=== PATIENT | male | born 1990 | race Hispanic/Latino ===

== ENCOUNTER 2021-05-08 18:43 | Emergency (ER) | payer OTHER, SELFPAY ==
[2021-05-08 19:15] VITALS: BP 131/86; PULSE 92; RESP 18; TEMP 36.6; O2SAT 98
--- NOTE | 2021-05-08 20:21 | ED.URI ---
HPI - URI/Sore Throat General Chief Complaint: Upper Respiratory Infection Stated Complaint: cough,nasal congestion Time Seen by Provider: 05/08/21 20:06 Source: patient and RN notes reviewed Mode of arrival: ambulatory Limitations: no limitations History of Present Illness HPI Narrative: Patient presents today with an 8-day history of cough, nasal congestion. Reports cough is worse throughout the day and is significantly worse at night. Denies shortness of breath. He had a negative PCR COVID-19 test several days ago. He had a telemedicine visit 2 days ago and was started on Augmentin and diagnosed with a URI. He is also been taking DayQuil and NyQuil. He has been vaccinated against COVID-19 and influenza. MD elicited complaint: cough and nasal congestion Related Data Home Medications Medication Instructions Recorded Confirmed montelukast 10 mg DAILY 05/08/21 05/08/21 sertraline 50 mg DAILY 05/08/21 05/08/21 Allergies Allergy/AdvReac Type Severity Reaction Status Date / Time No Known Allergies Allergy Verified 05/08/21 19:49 Review of Systems Review of Systems: CONSTITUTIONAL: Denies body aches, fever, chills, or sweats. EYES: Denies visual changes, redness, or discharge. ENT: Denies rhinorrhea, sore throat, or otalgia.+ Congestion CARDIOVASCULAR: Denies chest pain, palpitations, or edema. RESPIRATORY: Denies dyspnea.+ Cough GASTROINTESTINAL: Denies abdominal pain, nausea, vomiting, or diarrhea. GENITOURINARY: Denies dysuria or hematuria. SKIN: Denies rash, itching, or wounds. MUSCULOSKELETAL: Denies back pain, joint pain, or myalgia. NEUROLOGIC: Denies headache, numbness, tingling, or weakness. PSYCH: Denies depression or anxiety. PMFSH Comments At time of signature, I have reviewed and agree with nursing past medical, surgical, social and family history unless otherwise noted. Please see nursing chart for further information. There is no relevant family history pertinent to the presenting complaint Exam Narrative: GENERAL: Mildly ill-appearing, well-nourished, and in no acute distress. HEAD: Normocephalic, atraumatic. EYES: EOMI. No redness or drainage. Conjunctivae normal. ENT: Mucous membranes pink and moist. Nares congested. No rhinorrhea. TMs normal bilaterally. Throat normal. Uvula midline. NECK: Normal AROM. Supple. No lymphadenopathy. CHEST: No respiratory distress. Clear to auscultation. Harsh cough noted. HEART: Regular rate and rhythm. No murmur appreciated. Normal peripheral pulses. EXTREMITIES: Normal range of motion. No edema. SKIN: Warm, dry, no rash. Capillary refill normal. Normal skin turgor. NEURO: No focal deficits. Alert and oriented x3. Gait steady. PSYCH: Normal affect. No signs of depression or anxiety. Course Course Level of Care: Express Care Visit Vital Signs Vital signs: Vital Signs Temperature 97.8 F 05/08/21 19:15 Pulse Rate 92 05/08/21 19:15 Respiratory Rate 18 05/08/21 19:15 Blood Pressure 131/86 05/08/21 19:15 Pulse Oximetry 98 05/08/21 19:15 Temperature 97.8 F 05/08/21 19:15 Pulse Rate 92 05/08/21 19:15 Respiratory Rate 18 05/08/21 19:15 Blood Pressure 131/86 05/08/21 19:15 Pulse Oximetry 98 05/08/21 19:15 Reviewed. Pt has been instructed to follow up with his PCP regarding his elevated blood pressure today. MDM - URI/Sore Throat Differential Diagnosis Differential diagnosis: Likely upper respiratory infection, sinusitis, viral infection and bronchitis Critical Care Time Critical Care Time Critical Care Time: No Discharge Plan Discharge Clinical Impression: Bronchitis Sinusitis Qualifiers: Sinusitis location: unspecified location Chronicity: acute Recurrence: non-recurrent Qualified Code(s): J01.90 - Acute sinusitis, unspecified Patient Disposition: Home, Self-Care Condition: Stable Instructions: Sinusitis (ED), Acute Bronchitis (ED) Additional Instructions: Continue your prescribed Augmenti
== END 2021-05-08 20:31 | disposition home or self-care (01) ==
PROVIDERS: Emergency Provider Nurse Practitioner; PCP Family Medicine
DX: J40 Bronchitis, not specified as acute or chronic (principal); J01.90 Acute sinusitis, unspecified
CPT/HCPCS: 99203; G0463

== ENCOUNTER 2024-05-28 08:42 | Observation (INO) | payer BC, SELFPAY ==
[2024-05-28] VITALS (15 sets, daily range): BP systolic 109–140; BP diastolic 65–93; PULSE 89–107; RESP 12–22; TEMP 36.2–37.4; O2SAT 93–100; BMI 30.1
--- NOTE | ~2024-05-28 | CT_ITS ---
EXAMINATION: CT abdomen pelvis wo con DATE: 05/28/2024 09:21 INDICATION: Right lower quadrant abdominal pain TECHNIQUE: Computed tomography (CT) of the abdomen and pelvis was performed without intravenous contr ast. Automated exposure control and iterative reconstruction technique were employed. The dose-length product was 1175.79 mGy-cm. COMPARISON: None FINDINGS: 11 x 7 mm subpleural nodule in the right lower lobe. Heart size is normal. No pericardial or pleural effusion. Cholecystectomy clips the gallbladder fossa. Diffuse hepatic steatosis. Splenomegaly measur ing 15 cm in maximal length. Pancreas, bilateral adrenal glands and kidneys are normal. There is an a ppendicolith at the base of the appendix which is dilated to 1.5 cm in diameter more distally with wa ll thickening and surrounding inflammatory stranding consistent with acute appendicitis. No abscess o r free intraperitoneal gas or fluid. Remainder of the bowels are normal. Bladder is and prostate are normal. No pathologically enlarged abdominal or pelvic lymphadenopathy. Mild thoracolumbar dextrocurv ature with mild spondylosis. Chronic appearing mild anterior wedging at T11 and L2. L1 hemangioma. IMPRESSION: 1. Acute appendicitis. Dr. Goins discussed these findings with Dr. Fuller at 9:25 AM. 2. Indeterminate 11 x 7 mm right lower lobe pulmonary nodule. In a patient of this age group, these m ost likely represent granulomatous disease. According to James society recommendations, Primary l nahomy cancer is rare in persons under 35 years of age and the risks of radiation exposure are greater t veloz in the older population. Therefore, unless there is a known primary cancer, multiple follow-up C T studies for small incidentally detected nodules should be avoided in young patients. In such cases , a single low dose follow up CT scan in 6 to 12 months should be considered. 2. Nonspecific splenomegaly which could be related to body habitus. Reviewed, dictated and finalized at location A. [facility] IMPRESSION: 1. Acute appendicitis. Dr. Goins discussed these findings with Dr. Fuller at 9:25 AM. 2. Indeterminate 11 x 7 mm right lower lobe pulmonary nodule. In a patient of t his age group, these most likely represent granulomatous disease. According to James society recommendations, Primary lung cancer is rare in persons under 35 years of age and the risks of radiation exposure are greater than in the ol andres population. Therefore, unless there is a known primary cancer, multiple fo llow-up CT studies for small incidentally detected nodules should be avoided in young patients. In such cases, a single low dose follow up CT scan in 6 to 12 months should be considered. 2. Nonspecific splenomegaly which could be related to body habitus.
[2024-05-28 09:03] LABS: Basophils Percent Auto 0.2 % (0.2-1.2); Eosinophils Percent Auto 0.1 % (0-4.4); Hematocrit 50.9 % (42.0-52.0); Hemoglobin 17.1 g/dL (14.0-18.0); Immature Granulocyte Absolute 0.08 K/mm3 (0.00-0.031); Immature Granulocyte Percent A 0.5 % (0-0.5); Lymphocytes Absolute Auto 2.33 K/mm3 (0.9-3.2); Lymphocytes Percent Auto 14.2 % (18.3-44.2); Mean Corpuscular HGB Conc 33.6 g/dl (32-36); Mean Corpuscular Hemoglobin 29.3 pg (26-34); Mean Corpuscular Volume 87.3 fl (80-100); Monocytes Absolute Auto 1.2 K/mm3 (0.1-0.6); Neutrophils Absolute Auto 12.8 K/mm3 (1.3-6.7); Platelet Count Result 240 k/mm3 (150-375); Red Blood Count 5.83 M/mm3 (4.6-6.20); Red Cell Distribution Width 13.6 % (11.5-14.5); White Blood Count 16.4 K/mm3 (4.5-10.0)
[2024-05-28 09:08] LABS: Add Urine Microscopic? YES; Appearance Urine Clear (Clear); Bacteria Urine None Seen /hpf; Bilirubin Urine Negative (Negative); Blood Urine Negative (Negative); Color Urine Yellow (Yellow); Glucose Urine UA Negative (Negative); Ketones Urine Trace mg/dL (Negative); Leukocyte Esterase Ur Negative LEU/UL (Negative); Nitrate Urine Negative (Negative); Protein Urine Trace mg/dL (Negative); Squamous Epithelial Cell Urine None Seen /hpf (Few); Urobilinogen Urine 0.2 mg/dL (<2.0); WBC Urine 0-5 /hpf (0-3)
[2024-05-28 09:14] LABS: Alanine Aminotransferase 37 U/L (6-50); Alkaline Phosphatase 66 U/L (38-126); Anion Gap 14 mmol/L (4-12); Aspartate Amino Transferase 26 U/L (17-59); Bilirubin,Total 1.3 mg/dL (0.2-1.3); Blood Urea Nitrogen 9 mg/dL (9-20); Calcium 9.5 mg/dL (8.4-10.2); Carbon Dioxide 26 mmol/L (22-30); Chloride 101 mmol/L (98-107); Estimated CRCL calculation 120 ml/min; Estimated Glomerular Filt Rate > 60; Glucose 122 mg/dL (65-110); Lipase 105 U/L (23-300); Potassium 4.3 mmol/L (3.4-5.0); Sodium 141 mmol/L (137-145)
--- NOTE | 2024-05-28 09:33 | ED_ITS ---
HPI - Abdominal Pain General Chief Complaint: Abdominal Pain Stated Complaint: LRQ pain Time Seen by Provider: 05/28/24 09:09 Source: patient Mode of arrival: ambulatory Limitations: no limitations History of Present Illness HPI narrative: 34 YEARS OLD WHITE MALE DROVE HIMSELF TO THE EMERGENCY ROOM COMPLAINING OF RIGHT LOWER QUADRANT PAIN STARTED YESTERDAY MORNING GETTING WORSE ASSOCIATED WITH NAUSEA. HE DENIES ANY FEVER OR CHILLS OR VOMITING OR DIARRHEA OR CONSTIPATION. PAIN IS A STEADY WORSE WITH CERTAIN MOVEMENT, HISTORY OF CHOLECYSTECTOMY AND DEPRESSION. Related Data Home Medications ?Medication ?Instructions ?Recorded ?Confirmed ?Last Taken ?Type montelukast 10 mg tablet 10 mg DAILY 05/08/21 05/08/21 Unknown History sertraline 50 mg tablet 50 mg DAILY 05/08/21 05/08/21 Unknown History naproxen 250 mg tablet 250 mg PO BID PRN 12/11/23 Unknown History Allergies Allergy/AdvReac Type Severity Reaction Status Date / Time No Known Allergies Allergy Verified 05/28/24 08:45 Review of Systems 2 Review of Systems: All systems reviewed & are unremarkable except as noted in HPI and below PMFSH Social History Social History Smoking status: Smoker, status unknown Exam 2 Narrative: GENERAL APPEARANCE: WELL-DEVELOPED, WELL-NOURISHED SKIN: NORMAL COLOR HEAD: NORMOCEPHALIC, NONTRAUMATIC EYES: CLEAR CONJUNCTIVA ENT: OROPHARYNX NORMAL, EARS NORMAL, NOSE NORMAL NECK: SUPPLE, NONTENDER CHEST AND RESPIRATORY: AIRWAY PATENT, NO RESPIRATORY DISTRESS, NO ACCESSORY MUSCLE USE HEART: REGULAR RATE/RHYTHM ABDOMEN: SOFT, MODERATE TENDERNESS RIGHT LOWER QUADRANT, POSITIVE GUARDING, NO REBOUND NO ORGANOMEGALY, QUIET BOWEL SOUNDS MUSCULOSKELETAL: NORMAL RANGE OF MOTION, NONTENDER BACK NEUROLOGIC: ALERT AND ORIENTED ?3, DIRECTOR OF PLANT OPERATIONS IS NORMAL TESTED, NO GROSS MOTOR DEFICIT Course Consultations Consultation #1: DR SMITH Date: 05/28/24 Time: 09:37 Vital Signs Vital signs: Vital Signs Temperature 37.4 C 05/28/24 08:50 Pulse Rate 92 05/28/24 08:50 Respiratory Rate 18 05/28/24 08:50 Blood Pressure 132/90 05/28/24 08:50 Pulse Oximetry 100 05/28/24 08:50 Oxygen Delivery Room Air 05/28/24 08:50 Temperature 37.4 C 05/28/24 08:50 Pulse Rate 92 05/28/24 08:50 Respiratory Rate 18 05/28/24 08:50 Blood Pressure 132/90 05/28/24 08:50 Pulse Oximetry 100 05/28/24 08:50 Oxygen Delivery Room Air 05/28/24 08:50 MDM - Abdominal Pain MDM Narrative Medical decision making narrative: PATIENT PRESENTS WITH RIGHT LOWER QUADRANT PAIN VITAL SIGNS ARE STABLE PHYSICAL EXAMINATION CONSISTENT WITH TENDERNESS AND GUARDING OF THE RIGHT LOWER QUADRANT DIFFERENTIAL DIAGNOSIS INCLUDE ACUTE APPENDICITIS, URINARY TRACT INFECTION, KIDNEY STONE, CONSTIPATION, COLITIS, DIVERTICULITIS BLOOD WORKUP TODAY INCLUDES CBC, CMP, LIPASE SHOWED WBC 16.4, OTHERWISE INSIGNIFICANT URINALYSIS SHOWED NO EVIDENCE OF INFECTION CT SCAN OF THE ABDOMEN AND PELVIS WITH IV CONTRAST SHOWED FINDING CONSISTENT WITH ACUTE APPENDICITIS ZOSYN STARTED ADMIT TO SURGERY Differential Diagnosis Differential diagnosis: Likely other ( ABOVE) Medical Records Attestation: I reviewed the patient's medical records. Lab Data Attestation: I reviewed the patient's lab results. 05/28/24 08:56 05/28/24 08:56 Labs: Lab Results 05/28/24 Range/Units 08:56 WBC 16.4 H (4.5-10.0) K/mm3 RBC 5.83 (4.6-6.20) M/mm3 Hgb 17.1 (14.0-18.0) g/dL Hct 50.9 (42.0-52.0) % MCV 87.3 (80-100) fl MCH 29.3 (26-34) pg MCHC 33.6 (32-36) g/dl RDW 13.6 (11.5-14.5) % Plt Count 240 (150-375) k/mm3 MPV 11.0 H (7.4-10.4) fl Immature Gran % (Auto) 0.5 (0-0.5) % Neut % (Auto) 78.0 H (45.5-73.1) % Lymph % (Auto) 14.2 L (18.3-44.2) % [place] % (Auto) 7.0 (2.6-8.5) % Eos % (Auto) 0.1 (0-4.4) % Baso % (Auto) 0.2 (0.2-1.2) % Lymph # (Auto) 2.33 (0.9-3.2) K/mm3 [place] # (Auto) 1.2 H (0.1-0.6) K/mm3 Eos # (Auto) 0.0 (0-0.3) K/mm3 Baso # (Auto) 0.0 (0.0-0.1) K/mm3 Abs Immat Gran (auto) 0.08 H (0.00-0.031) K/mm3 Absolute Neuts (auto) 12.8 H (1.3-6.7) K/mm3 Absolute Nucleated RBC 0.000 (0.0-0.012) K/mm3 Nucleated RBC % 0.0 (0.0-0.2) % Sodium 141 (137-145) mmol/L Potassium 4.3 (3.4-5.0) mmol/L Chloride 101 (98-107) mmol/L Carbon Dioxide 26 (22-30) mmol/L Anion Gap 14 H (4-12) mmol/L BUN 9 (9-20) mg/dL Creatinine 0.96 (0.7-1.3) mg/dL Estim Creat Clear Calc 120 ml/min Estimated GFR > 60 (59 - ) Glucose 122 H (65-110) mg/dL Calcium 9.5 (8.4-10.2) mg/dL Total Bilirubin 1.3 (0.2-1.3) mg/dL AST 26 (17-59) U/L ALT 37 (6-50) U/L Alkaline Phosphatase 66 (38-126) U/L Total Protein 8.0 (6.3-8.2) g/dL Albumin 5.0 (3.5-5.1) g/dL Lipase 105 (23-300) U/L Urine Color Yellow (Yellow) Urine Appearance Clear (Clear) Urine pH 6.0 (5.0-9.0) Ur Specific [place] 1.020 (1.001-1.035) Urine Protein Trace (Negative) mg/dL Urine Glucose (UA) Negative (Negative) mg/dL Urine Ketones Trace H (Negative) mg/dL Ur Blood (Man) Negative (Negative) Urine Nitrate Negative (Negative) Urine Bilirubin Negative (Negative) Urine Urobilinogen 0.2 (<2.0) mg/dL Leukocyte Esterase Rfl Negative (Negative) ZULEMA/UL Urine RBC 3-5 H (0-2) /hpf Urine WBC 0-5 (0-3) /hpf Ur Squamous Epith Cells None seen (Few) /hpf Urine Bacteria None seen /hpf Urine Casts 3-5 Imaging Data Radiologist's impression: ITS Impressions Abdomen/Pelvis CT 05/28/24 09:22 IMPRESSION: 1. Acute appendicitis. Dr. Goins discussed these findings with Dr. Fuller at 9:25 AM. 2. Indeterminate 11 x 7 mm right lower lobe pulmonary nodule. In a patient of this age group, these most likely represent granulomatous disease. According to James society recommendations, Primary lung cancer is rare in persons under 35 years of age and the risks of radiation exposure are greater than in the older population. Therefore, unless there is a known primary cancer, multiple follow-up CT studies for small incidentally detected nodules should be avoided in young patients. In such cases, a single low dose follow up CT scan in 6 to 12 months should be considered. 2. Nonspecific splenomegaly which could be related to body habitus. Critical Care Time Critical Care Time Critical Care Time: No Discharge Plan Discharge Clinical Impression: Acute appendicitis Patient Disposition: Still a Patient Condition: Stable Patient Language: Slovak Prescriptions: No Action montelukast 10 mg tablet 10 mg DAILY sertraline 50 mg tablet 50 mg DAILY albuterol sulfate [ProAir HFA] 90 mcg/actuation HFA aerosol inhaler 2 puff INHALATION Q4-6H PRN (Reason: shortness of breath or wheezing) Qty: 18 0RF naproxen 250 mg tablet 250 mg PO BID PRN Xifaxan 550 mg tablet 550 mg PO TID 14 Days Qty: 42 3RF dicyclomine 10 mg capsule 10 - 20 mg PO QID PRN (Reason: abdominal pain) Qty: 120 3RF Follow-up/Referrals: Sensintaffar,MD Rodri [Primary Care Provider] -
[2024-05-28] MEDS: HYDROmorphone HCL INJ (*CRX) 1 MG/ML SYR 0.5 MG IV PUSH ×2 (09:38→13:25)
[2024-05-28] MEDS: ONDANSETRON INJ 4 MG/2 ML VIAL IV PUSH ×2 (09:38→13:00)
[2024-05-28] MEDS: PIPERACILLN/TAZ 3.375GM/NS50ML 3.375 GM/50 ML BAG IVPB ×3 (09:38→21:57)
--- NOTE | 2024-05-28 12:30 | ADMGEN ---
This patient, Adrian Pabon, was admitted to [facility] Surg Room 312-01. Patient/family oriented to hospital policies and general routines including ID bracelet, bed and alarms, visiting hours, pain management, procedures, bathroom and other care routines, personal items, smoking policy, room service/diet, and visiting hours. Information on how to activate the Rapid Response Team has been discussed. Patient/Family are encouraged to report perceived risks to care and to ask questions if they do not understand what they are told or what they should do.
--- NOTE | 2024-05-28 12:58 | P.HP_ITS ---
H&P: HPI History of Present Illness Date/Time: 05/28/24 12:58 Chief Complaint: Right lower quadrant pain Narrative: This is a 34-year-old man who presented to the emergency department this morning with right lower quadrant pain that started yesterday around 7:00 a.m.. He has never had any symptoms like this in the past. He states that the pain started somewhat vague but then localized to the right lower quadrant and is also referred down into his right testicular region. He denies any fevers or chills. He has had nausea but no vomiting. He denies any change in bowel habits. Review of Systems Review of Systems: All systems reviewed & are unremarkable except as noted in HPI and below Constitutional: Constitutional: Denies chills and Denies fever(s) Eyes: Eyes: Denies change in vision ENT: Denies hearing loss, Denies neck pain and Denies sore throat Cardiovascular: Cardiovascular: Denies chest pain and Denies dyspnea Respiratory: Respiratory: Denies cough, Denies dyspnea and Denies wheezing Gastrointestinal: Gastrointestinal: Reports as per HPI Genitourinary: Genitourinary: Denies hematuria and Denies dysuria Musculoskeletal: Musculoskeletal: Denies arthralgias, Denies joint swelling and Denies neck pain Allergic/Immunologic: Allergic/Immunologic: Denies wheezing PMFSH Past Medical History Medical History (Updated 05/28/24 @ 13:03 by Artem Finnegan DO) Irritable bowel syndrome with diarrhea Surgical History Surgical History (Updated 05/28/24 @ 13:01 by Artem Finnegan DO) History of wisdom tooth extraction History of laparoscopic cholecystectomy Social History Social History Smoking status: Never smoker Alcohol intake: never Substance use: never Do You Feel Safe in your Home?: Yes Lack of Transportation: No Lack of Food: Never True Current Housing: I Have Housing Concerned About Future Housing: No Difficulty Paying Gas/Electric Bills: YES Difficulty Paying for Meds: YES Currently Unemployed: No Education: Decline to Answer Difficulty w/ Childcare or Family Care: YES Spiritual care concerns: No Meds Home Medications and Allergies Home Medications ?Medication ?Instructions ?Recorded ?Confirmed ?Type albuterol sulfate 90 mcg/actuation 2 puff inhalation Q4-6H PRN 05/08/21 Rx aerosol inhaler (ProAir HFA) shortness of breath or wheezing #18 grams montelukast 10 mg tablet 10 mg DAILY 05/08/21 05/08/21 History sertraline 50 mg tablet 50 mg DAILY 05/08/21 05/08/21 History dicyclomine 10 mg capsule 10 - 20 mg (1 - 2 x 10 mg) PO QID 12/11/23 12/11/23 Rx PRN abdominal pain #120 caps naproxen 250 mg tablet 250 mg PO BID PRN 12/11/23 History rifaximin 550 mg tablet (Xifaxan) 550 mg PO TID 14 days #42 tabs 12/11/23 12/11/23 Rx Allergies Allergy/AdvReac Type Severity Reaction Status Date / Time No Known Allergies Allergy Verified 05/28/24 08:45 Vital Signs Vital Signs - 24 hr 05/28/24 08:50 05/28/24 10:45 Temperature 99.4 F Pulse Rate 92 89 Respiratory Rate 18 18 Blood Pressure 132/90 109/65 Pulse Oximetry 100 95 Oxygen Delivery Room Air Exam Const: General: alert; No acute distress Orientation/consciousness: patient oriented x3 Limitations: no limitations HENMT: Head: normocephalic and atraumatic Ears: hearing grossly normal bilaterally Face/Nose/Sinus: Normal external nose present and Normal nares present Mouth: Yes Normal oral and palatal mucosa present and Yes moist mucous membranes Eyes: General: appearance normal, both eyes and all related structures Conjunctivae: conjunctivae normal Sclera: sclerae normal Pupils: Equal, round and reactive pupils present EOM: EOMs intact bilaterally Neck: Neck: normal visual inspection, full ROM, no lymphadenopathy, supple and no JVD Lymphatic: no lymphadenopathy noted Chest: Chest palpation & inspection: normal inspection of the chest Resp: Effort & Inspection: normal respiratory effort and able to speak in complete sentences Auscultation: clear to auscultation bilaterally Percussion: percussion normal Cardio: Jugular venous distension: no JVD Rate: regular rate Rhythm: regular rhythm Heart sounds: S1 normal heart sound present and S2 normal heart sound present Peripheral pulses: Peripheral pulses 2+ throughout GI: Inspection: normal to inspection GI Palp: Yes Soft to palpation, Yes Tenderness to palpation present (GI) (Right lower quadrant) and Yes Guarding due to palpation present (GI) (Right lower quadrant) Auscultation: normal bowel sounds : General: Yes no CVA tenderness Back/Spine/Pelvis: Back: no CVA tenderness Skin: General skin exam: normal color and dry skin Neuro: General: patient oriented x3, gait normal, moves all extremities, no focal motor deficits and CN's II-XI intact bilaterally Cranial nerves: Yes Equal, round and reactive pupils present Speech: normal speech Extrem: General: normal to inspection and capillary refill normal H&P: Results Labs Labs: Short CBC 05/28/24 Range/Units 08:56 WBC 16.4 H (4.5-10.0) K/mm3 Hgb 17.1 (14.0-18.0) g/dL Hct 50.9 (42.0-52.0) % Plt Count 240 (150-375) k/mm3 BMP 05/28/24 08:56 Sodium 141 Potassium 4.3 Chloride 101 Carbon Dioxide 26 BUN 9 Creatinine 0.96 Glucose 122 H Calcium 9.5 Liver Function 05/28/24 Range/Units 08:56 Total Bilirubin 1.3 (0.2-1.3) mg/dL AST 26 (17-59) U/L ALT 37 (6-50) U/L Alkaline Phosphatase 66 (38-126) U/L Albumin 5.0 (3.5-5.1) g/dL Urine 05/28/24 Range/Units 08:56 Urine Color Yellow (Yellow) Urine Appearance Clear (Clear) Urine pH 6.0 (5.0-9.0) Ur Specific [employer] 1.020 (1.001-1.035) Urine Protein Trace (Negative) mg/dL Urine Glucose (UA) Negative (Negative) mg/dL Imaging CT scan - abdomen: Radiologist's impression: ITS Impressions Abdomen/Pelvis CT 05/28/24 09:22 IMPRESSION: 1. Acute appendicitis. Dr. Goins discussed these findings with Dr. Fuller at 9:25 AM. 2. Indeterminate 11 x 7 mm right lower lobe pulmonary nodule. In a patient of this age group, these most likely represent granulomatous disease. According to James society recommendations, Primary lung cancer is rare in persons under 35 years of age and the risks of radiation exposure are greater than in the older population. Therefore, unless there is a known primary cancer, multiple follow-up CT studies for small incidentally detected nodules should be avoided in young patients. In such cases, a single low dose follow up CT scan in 6 to 12 months should be considered. 2. Nonspecific splenomegaly which could be related to body habitus. Assessment and Plan Assessment and plan (1) Acute appendicitis: Qualifiers: Acute appendicitis type: with localized peritonitis Appendicitis gangrene presence: unspecified whether gangrene present Appendicitis perforation presence: unspecified whether perforation present Appendicitis abscess presence: unspecified whether abscess present Qualified Code(s): K35.30 - Acute appendicitis with localized peritonitis, without perforation or gangrene Code(s): K35.80 - Unspecified acute appendicitis Status: Acute Assessment and Plan: * I have reviewed the CT and discussed the findings with the patient. Patient has evidence of acute appendicitis. Discussed both medical and surgical treatment options and patient feels comfortable proceeding with surgery. He has been started on IV Zosyn and admitted for observation. I have recommended undergoing urgent laparoscopic appendectomy, possible open. I discussed the procedure, risks, benefits, and alternatives. Questions were answered. I discussed that if perforation is found at the time of surgery he might require a longer hospitalization. Patient voiced his understanding.
[2024-05-28] MEDS: LACTATED RINGERS 1,000 ML 150 ML IV CONT (13:00)
--- NOTE | 2024-05-28 13:15 | WPDHPUPDATE1 ---
History and Physical Update Update Date/Time: 05/28/24 13:15 History and Physical has been reviewed, including an updated exam of the patient. There are NO changes in the patient's condition. Risks, benefits, and alternatives have been discussed and questions answered. Patient agrees to proceed with procedure.
--- NOTE | 2024-05-28 14:17 | P.PNAN_ITS ---
Anes - Initial Pre Proc Eval Procedure: Operation Date: 05/28/24 15:00 Proposed Procedures p Laparoscopic Appendectomy - Artem Finnegan DO Date/Time: 05/28/24 14:17 Surgeon: Artem Finnegan DO Pre Op Diagnosis: Acute Appendicitis Patient Data Age: 34 Gender: M Height: 1.93 m Weight: 112.2 kg Last Vital Signs Temp 36.7 C 05/28/24 13:45 Pulse 96 05/28/24 13:45 Resp 14 05/28/24 13:45 BP 119/68 05/28/24 13:45 Pulse Ox 100 05/28/24 13:45 O2 Del Method Room Air 05/28/24 13:45 Allergies Allergy/AdvReac Type Severity Reaction Status Date / Time No Known Allergies Allergy Verified 05/28/24 14:10 Home Medications ?Medication ?Instructions ?Recorded ?Confirmed ?Type albuterol sulfate 90 mcg/actuation 2 puff inhalation Q4-6H PRN 05/08/21 Rx aerosol inhaler (ProAir HFA) shortness of breath or wheezing #18 grams montelukast 10 mg tablet 10 mg DAILY 05/08/21 05/08/21 History sertraline 50 mg tablet 50 mg DAILY 05/08/21 05/08/21 History dicyclomine 10 mg capsule 10 - 20 mg (1 - 2 x 10 mg) PO QID 12/11/23 12/11/23 Rx PRN abdominal pain #120 caps naproxen 250 mg tablet 250 mg PO BID PRN 12/11/23 History rifaximin 550 mg tablet (Xifaxan) 550 mg PO TID 14 days #42 tabs 12/11/23 12/11/23 Rx Laboratory Tests 05/28/24 08:56 WBC 16.4 H K/mm3 (4.5-10.0) RBC 5.83 M/mm3 (4.6-6.20) Hgb 17.1 g/dL (14.0-18.0) Hct 50.9 % (42.0-52.0) MCV 87.3 fl (80-100) MCH 29.3 pg (26-34) MCHC 33.6 g/dl (32-36) RDW 13.6 % (11.5-14.5) Plt Count 240 k/mm3 (150-375) MPV 11.0 H fl (7.4-10.4) Immature Gran % (Auto) 0.5 % (0-0.5) Neut % (Auto) 78.0 H % (45.5-73.1) Lymph % (Auto) 14.2 L % (18.3-44.2) [place] % (Auto) 7.0 % (2.6-8.5) Eos % (Auto) 0.1 % (0-4.4) Baso % (Auto) 0.2 % (0.2-1.2) Lymph # (Auto) 2.33 K/mm3 (0.9-3.2) [place] # (Auto) 1.2 H K/mm3 (0.1-0.6) Eos # (Auto) 0.0 K/mm3 (0-0.3) Baso # (Auto) 0.0 K/mm3 (0.0-0.1) Abs Immat Gran (auto) 0.08 H K/mm3 (0.00-0.031) Absolute Neuts (auto) 12.8 H K/mm3 (1.3-6.7) Absolute Nucleated RBC 0.000 K/mm3 (0.0-0.012) Nucleated RBC % 0.0 % (0.0-0.2) Sodium 141 mmol/L (137-145) Potassium 4.3 mmol/L (3.4-5.0) Chloride 101 mmol/L (98-107) Carbon Dioxide 26 mmol/L (22-30) Anion Gap 14 H mmol/L (4-12) BUN 9 mg/dL (9-20) Creatinine 0.96 mg/dL (0.7-1.3) Estim Creat Clear Calc 120 ml/min Estimated GFR > 60 (59 - ) Glucose 122 H mg/dL (65-110) Calcium 9.5 mg/dL (8.4-10.2) Total Bilirubin 1.3 mg/dL (0.2-1.3) AST 26 U/L (17-59) ALT 37 U/L (6-50) Alkaline Phosphatase 66 U/L (38-126) Total Protein 8.0 g/dL (6.3-8.2) Albumin 5.0 g/dL (3.5-5.1) Lipase 105 U/L (23-300) Urine Color Yellow (Yellow) Urine Appearance Clear (Clear) Urine pH 6.0 (5.0-9.0) Ur Specific [place] 1.020 (1.001-1.035) Urine Protein Trace mg/dL (Negative) Urine Glucose (UA) Negative mg/dL (Negative) Urine Ketones Trace H mg/dL (Negative) Ur Blood (Man) Negative (Negative) Urine Nitrate Negative (Negative) Urine Bilirubin Negative (Negative) Urine Urobilinogen 0.2 mg/dL (<2.0) Leukocyte Esterase Rfl Negative ZULEMA/UL (Negative) Urine RBC 3-5 H /hpf (0-2) Urine WBC 0-5 /hpf (0-3) Ur Squamous Epith Cells None seen /hpf (Few) Urine Bacteria None seen /hpf Urine Casts 3-5 Patient hx anesthesia problems: none Family hx anesthesia problems: none Results Review: All pre-operative results and documents have been reviewed as part of the pre- operative evaluation. [facility] Past Medical History Medical History (Updated 05/28/24 @ 14:18 by Willard Patino DO) Asthma Irritable bowel syndrome with diarrhea Surgical History Surgical History (Updated 05/28/24 @ 13:01 by Artem Finnegan DO) History of wisdom tooth extraction History of laparoscopic cholecystectomy Social History Social History Smoking status: Never smoker Alcohol intake: never Substance use: never Do You Feel Safe in your Home?: Yes Lack of Transportation: No Lack of Food: Never True Current Housing: I Have Housing Concerned About Future Housing: No Difficulty Paying Gas/Electric Bills: YES Difficulty Paying for Meds: YES Currently Unemployed: No Education: Decline to Answer Difficulty w/ Childcare or Family Care: YES Spiritual care concerns: No Anes - Eval Final PreProcedure Day of Procedure 05/28/24 14:17 Patient weight: obese Heart: regular rate and rhythm Lungs: clear to auscultation Airway: Mallampati scale class II Neurological: alert and oriented Last oral intake: >/= 8 hours ASA classification: II Emergent: yes Anesthetic plan: proceed Anesthesia type and monitoring: general ETT and standard monitoring Results Review: All pre-operative results and documents have been reviewed as part of the pre- operative evaluation. Informed Consent: The patient's anesthetic plan and its attendant risks and benefits were discussed with the patient/family/POA. Questions were solicited and answers provided to the satisfaction of the patient/family/POA.
[2024-05-28] MEDS: BUPIVACAINE/EPINEPHRINE 0.5% 10 ML VIAL 30 ML INFILTRATE (14:38)
[2024-05-28] MEDS: LACTATED RINGERS 1,000 ML 30 ML IV CONT ×2 (15:28→16:01)
--- NOTE | 2024-05-28 15:31 | P.OP_ITS ---
Procedure Note - Detailed Date of Procedure 05/28/24 Pre-op Diagnosis Acute Appendicitis Post-op Diagnosis Same (Acute perforated appendicitis) Procedure Performed Laparoscopic appendectomy Surgeon Artem Finnegan, DO Anesthesia General and Local (0.5% bupivicaine with epinephrine) Indications This is a 34-year-old man who presented to the emergency department with right lower quadrant pain that started yesterday. He denied any fevers or chills. He was experiencing some nausea. He was noted to have a white blood count of 16.[address] showed evidence of acute appendicitis. He was started on IV Zosyn and placed in observation. Discussions were made with the patient about treatment options and decision was made to proceed with laparoscopic appendectomy, possible open. Findings Laparoscopic appendectomy was performed. The appendix was found in the right lower quadrant appeared to be indurated and dilated. There appeared to be a tiny site of perforation close to the base of the appendix but there was no evidence of abscess formation yet. The base of the appendix appeared healthy and viable. The appendix was removed and sent to the lab for pathology. The area was irrigated with sterile saline and no further abnormalities were noted. Description of Procedure Procedure as well as risks, benefits, and alternatives were explained to the patient. The patient agreed to proceed. Written consent was obtained and placed in chart prior to procedure. The patient was brought back to surgical suite. He was placed supine on operating table. Time-out was done to confirm the patient and procedure. The patient was then intubated by the Anesthesia Department. His abdomen was prepped and draped in sterile fashion using chlorhexidine prep. A 5 mm incision was made just to the left of the patient's umbilicus and a 5 mm Optiview trocar was advanced through the abdominal layers under direct visualization. Once inside the peritoneal cavity, carbon dioxide insufflation was used to create a pneumoperitoneum. The camera was inserted and the abdomen was inspected. No immediate abnormalities were identified. The patient was then placed in slight Trendelenburg position and rotated to the le ft. A 5 mm incision was made in the suprapubic region in midline and a 5 mm trocar was inserted under direct visualization. A 12 mm incision was made in the left lower quadrant and a 12 mm trocar was inserted under direct visualization. The right lower quadrant was carefully inspected. The cecum was identified and then this was traced back to the appendix. The appendix was identified and grasped at the mesoappendix and lifted anteriorly. Careful blunt dissection was carried out at the base of the appendix through the mesoappendix using a [place] grasper. An Endo-CHRISTIANA 45 mm blue load stapler was then advanced across the base of the appendix and clamped and fired. A white reload was then clamped across the mesoappendix and fired. This freed up our appendix completely. It was then placed in an EndoCatch bag and removed through the left lower quadrant port. The staple lines were then inspected. Hemostasis appeared adequate and the staple lines appeared secure. The area was then irrigated with sterile saline. The pelvis was then carefully inspected and irrigated with sterile saline as well and the remainder of the abdomen was carefully inspected. The patient was then flattened out in bed. One final inspection was made around the abdominal cavity and no other abnormalities were seen. The left lower quadrant port was removed and a Avery-Catherine cone was used to appr oximate the fascia with an 0 Vicryl simple interrupted suture. The remaining ports were then removed under direct visualization. The camera was removed and the pneumoperitoneum was released. 0.5% bupivacaine with epinephrine was infiltrated locally around each of the incisions. The skin of the incisions was then approximated using 4-0 Monocryl subcuticular suture and Exofin glue was applied on top. The patient was then awakened from anesthesia, extubated, and transferred to Recovery. Estimated Blood Loss 10 Urine Output 300 Pathology Yes (Appendix) Complications No immediate complications Condition Stable Disposition Floor [facility] Billing Surgery - Charge Forward: Surgery Billing
[2024-05-28] MEDS: fentaNYL CITRATE INJ (*CRX) 100 MCG/2 ML VIAL 25 MCG IV PUSH ×2 (16:05→16:16)
[2024-05-28] MEDS: MONTELUKAST SODIUM 10 MG TABLET PO (18:03)
[2024-05-28] MEDS: HYDROcodone/acetaminophen (*CRX) 10-325 MG TABLET 1 TAB PO (18:03)
[2024-05-28] MEDS: IBUPROFEN 600 MG TABLET PO (20:38)
[2024-05-29] MEDS: PIPERACILLN/TAZ 3.375GM/NS50ML 3.375 GM/50 ML BAG IVPB ×4 (03:36→21:09)
[2024-05-29] MEDS: IBUPROFEN 600 MG TABLET PO ×2 (03:38→14:29)
[2024-05-29 06:00] VITALS: BP 98/71; PULSE 65; RESP 14; TEMP 36; O2SAT 97
[2024-05-29 06:27] LABS: Hematocrit 43.3 % (42.0-52.0); Hemoglobin 14.3 g/dL (14.0-18.0); Mean Corpuscular Hemoglobin 28.9 pg (26-34); Mean Corpuscular Volume 87.7 fl (80-100); Mean Platelet Volume 10.7 fl (7.4-10.4); Platelet Count Result 175 k/mm3 (150-375); Red Blood Count 4.94 M/mm3 (4.6-6.20); Red Cell Distribution Width 13.5 % (11.5-14.5); White Blood Count 11.8 K/mm3 (4.5-10.0)
[2024-05-29 06:41] LABS: Anion Gap 8 mmol/L (4-12); Blood Urea Nitrogen 9 mg/dL (9-20); Calcium 8.7 mg/dL (8.4-10.2); Carbon Dioxide 30 mmol/L (22-30); Chloride 102 mmol/L (98-107); Estimated CRCL calculation 98 ml/min; Estimated Glomerular Filt Rate > 60; Glucose 113 mg/dL (65-110); Potassium 4.2 mmol/L (3.4-5.0); Sodium 140 mmol/L (137-145)
[2024-05-29] MEDS: SERTRALINE HCL 50 MG TABLET 100 MG PO (08:32)
[2024-05-29] MEDS: ENOXAPARIN 40 MG/0.4 ML SYRINGE SUB-Q (08:35)
[2024-05-29] MEDS: HYDROcodone/acetaminophen (*CRX) 5-325 MG TABLET 1 TAB PO (08:35)
[2024-05-29] MEDS: HYDROmorphone HCL INJ (*CRX) 1 MG/ML SYR IV PUSH (12:39)
[2024-05-29 13:58] VITALS: BP 107/67; PULSE 101; RESP 16; TEMP 37.5; O2SAT 98
--- NOTE | 2024-05-29 15:46 | P.PNGS_ITS ---
Progress Note: A&P Assessment and Plan (1) Acute appendicitis: Qualifiers: Acute appendicitis type: with localized peritonitis Appendicitis abscess presence: without abscess Appendicitis gangrene presence: unspecified whether gangrene present Appendicitis perforation presence: with perforation Qualified Code(s): K35.32 - Acute appendicitis with perforation, localized peritonitis, and gangrene, without abscess Code(s): K35.80 - Unspecified acute appendicitis Status: Acute Assessment and Plan: * Still having a fair amount of pain. Will schedule Toradol IV to get better pain control. * Continue Zosyn * Increase activity as tolerated * Possibly home in next 1-2 days. Subjective Subjective Date/Time Seen: 05/29/24 15:46 Interval history: Still having significant pain all across lower abdomen. Slightly worse at LLQ incision but radiating to the right as well. No nausea or vomiting. Passing flatus and having some liquid BMs. Difficult to get pain under control so far. Exam GI: Inspection: incision (intact with glue, slight bruising around umbilical incision) GI Palp: Yes Soft to palpation, Yes Tenderness to palpation present (GI) (LLQ and RLQ), No Guarding due to palpation present (GI) and No Rebound tenderness present Auscultation: normal bowel sounds Objective Data Vital Signs Vital Signs: Vital Signs - 24 hr 05/28/24 15:55 05/28/24 16:10 05/28/24 16:25 Temperature 98 F Pulse Rate 107 H 100 98 Respiratory Rate 20 16 17 Blood Pressure 138/69 122/80 138/75 Pulse Oximetry 97 93 94 Oxygen Delivery Simple Face Mask Room Air Nasal Cannula Oxygen Flow Rate 8 2 05/28/24 16:40 05/28/24 16:55 05/28/24 17:15 Temperature 97.5 F L Pulse Rate 96 95 98 Respiratory Rate 16 14 18 Blood Pressure 131/80 118/76 140/93 H Pulse Oximetry 93 96 99 Oxygen Delivery Nasal Cannula Nasal Cannula Oxygen Flow Rate 2 2 05/28/24 17:30 05/28/24 18:00 05/28/24 19:00 Temperature 97.5 F L 97.4 F L 97.7 F Pulse Rate 94 92 95 Respiratory Rate 18 18 20 Blood Pressure 126/82 124/84 110/93 H Pulse Oximetry 97 98 99 Oxygen Delivery Oxygen Flow Rate 05/28/24 19:51 05/29/24 06:00 05/29/24 08:35 Temperature 97.1 F L 96.8 F L Pulse Rate 91 65 Respiratory Rate 12 14 Blood Pressure 121/85 98/71 L Pulse Oximetry 99 97 Oxygen Delivery Room Air Oxygen Flow Rate 05/29/24 13:58 Temperature 99.5 F Pulse Rate 101 H Respiratory Rate 16 Blood Pressure 107/67 Pulse Oximetry 98 Oxygen Delivery Oxygen Flow Rate Intake/Output Intake/Output: Intake & Output 05/26/24 05/27/24 05/28/24 05/29/24 23:59 23:59 23:59 23:59 Intake Total 2150 1245 Output Total 300 Balance 1850 1245 Meds/Results Medications: Active Medications Generic Name Dose Route Start Last Admin Trade Name Freq PRN Reason Stop Dose Admin Hydrocodone Bitart/Acetaminophen 1 tab 05/28/24 17:02 05/29/24 08:35 Hydrocodone/Acetaminophen (*Crx) 5-325 Mg Tablet PO 1 tab Q4H PRN Administration Pain Rated 4-6 Hydrocodone Bitart/Acetaminophen 1 tab 05/28/24 17:02 05/28/24 18:03 Hydrocodone/Acetaminophen (*Crx) 10-325 Mg Tablet PO 1 tab Q4H PRN Administration Pain Rated 7-10 Albuterol 2 puff 05/28/24 17:02 Albuterol Sulfate (*Sp) Aerosol 1 Puff INHALATION Q4-6H PRN shortness of breath or wheezing Diphenhydramine HCl 25 mg 05/28/24 17:02 Diphenhydramine Hcl Inj 50 Mg/Ml Vial IV PUSH Q6H PRN Itching Enoxaparin Sodium 40 mg 05/29/24 09:00 05/29/24 08:35 Enoxaparin 40 Mg/0.4 Ml Syringe SUB-Q 40 mg DAILY NORMAN Administration Hydromorphone HCl 1 mg 05/28/24 17:02 05/29/24 12:39 Hydromorphone Hcl Inj (*Crx) 1 Mg/Ml Syr IV PUSH 1 mg Q2H PRN Administration Breakthrough Pain Rated 7-10 or NPO Hydromorphone HCl 0.5 mg 05/28/24 17:02 Hydromorphone Hcl Inj (*Crx) 1 Mg/Ml Syr IV PUSH Q2H PRN Breakthrough Pain Rated 4-6 or NPO Piperacillin/Tazobactam/Dextrose 3.375 gm in 50 mls @ 100 mls/hr 05/29/24 10:00 05/29/24 11:22 Zosyn 3.375 Gm/Ns 50 Ml IVPB Infused Q6H NORMAN Infusion Ketorolac Tromethamine 30 mg 05/29/24 19:00 Ketorolac 30 Mg/Ml Vial (*Bkc) IV PUSH 05/30/24 12:01 Q6HR NORMAN Montelukast Sodium 10 mg 05/28/24 18:00 05/28/24 18:03 Montelukast Sodium 10 Mg Tablet PO 10 mg QPM NORMAN Administration Naloxone HCl 0.1 mg 05/28/24 17:02 Naloxone Hcl 0.4 Mg/Ml Vial IV PUSH Q2M PRN Opiate Reversal Ondansetron HCl 4 mg 05/28/24 10:40 05/28/24 13:00 Ondansetron Inj 4 Mg/2 Ml Vial IV PUSH 4 mg Q4H PRN Administration Nausea Sertraline HCl 100 mg 05/29/24 09:00 05/29/24 08:32 Sertraline Hcl 50 Mg Tablet PO 100 mg DAILY NORMAN Administration Radiology Results: ITS Impressions Abdomen/Pelvis CT 05/28/24 09:22 IMPRESSION: 1. Acute appendicitis. Dr. Goins discussed these findings with Dr. Fuller at 9:25 AM. 2. Indeterminate 11 x 7 mm right lower lobe pulmonary nodule. In a patient of this age group, these most likely represent granulomatous disease. According to James society recommendations, Primary lung cancer is rare in persons under 35 years of age and the risks of radiation exposure are greater than in the older population. Therefore, unless there is a known primary cancer, multiple follow-up CT studies for small incidentally detected nodules should be avoided in young patients. In such cases, a single low dose follow up CT scan in 6 to 12 months should be considered. 2. Nonspecific splenomegaly which could be related to body habitus. Labs Labs: Laboratory Results - last 24 hr 05/29/24 06:16 WBC 11.8 H RBC 4.94 Hgb 14.3 Hct 43.3 MCV 87.7 MCH 28.9 MCHC 33.0 RDW 13.5 Plt Count 175 MPV 10.7 H Sodium 140 Potassium 4.2 Chloride 102 Carbon Dioxide 30 Anion Gap 8 BUN 9 Creatinine 1.18 Estim Creat Clear Calc 98 Estimated GFR > 60 Glucose 113 H Calcium 8.7
[2024-05-29] MEDS: MONTELUKAST SODIUM 10 MG TABLET PO (17:04)
[2024-05-29 20:00] VITALS: PULSE 101; RESP 16; O2SAT 98
[2024-05-29] MEDS: KETOROLAC 30 MG/ML VIAL (*BKC) IV PUSH (20:04)
[2024-05-29 21:20] VITALS: BP 103/69; PULSE 89; RESP 18; TEMP 36.9; O2SAT 97
[2024-05-30] MEDS: KETOROLAC 30 MG/ML VIAL (*BKC) IV PUSH ×2 (00:45→06:20)
[2024-05-30] MEDS: PIPERACILLN/TAZ 3.375GM/NS50ML 3.375 GM/50 ML BAG IVPB ×2 (04:55→09:33)
[2024-05-30 05:52] VITALS: BP 124/77; PULSE 71; RESP 14; TEMP 36.5; O2SAT 98
[2024-05-30 06:55] LABS: Hematocrit 39.9 % (42.0-52.0); Hemoglobin 12.9 g/dL (14.0-18.0); Mean Corpuscular HGB Conc 32.3 g/dl (32-36); Mean Corpuscular Hemoglobin 28.8 pg (26-34); Mean Corpuscular Volume 89.1 fl (80-100); Mean Platelet Volume 11.4 fl (7.4-10.4); Platelet Count Result 166 k/mm3 (150-375); Red Blood Count 4.48 M/mm3 (4.6-6.20); Red Cell Distribution Width 13.7 % (11.5-14.5); White Blood Count 9.4 K/mm3 (4.5-10.0)
[2024-05-30 07:06] LABS: Anion Gap 8 mmol/L (4-12); Blood Urea Nitrogen 10 mg/dL (9-20); Calcium 8.4 mg/dL (8.4-10.2); Carbon Dioxide 28 mmol/L (22-30); Chloride 104 mmol/L (98-107); Estimated CRCL calculation 116 ml/min; Estimated Glomerular Filt Rate > 60; Glucose 93 mg/dL (65-110); Potassium 3.8 mmol/L (3.4-5.0); Sodium 140 mmol/L (137-145)
[2024-05-30] MEDS: ENOXAPARIN 40 MG/0.4 ML SYRINGE SUB-Q (09:32)
[2024-05-30] MEDS: SERTRALINE HCL 50 MG TABLET 100 MG PO (09:33)
[2024-05-30] MEDS: oxyCODONE/ACETAMINOPHEN (*CRX) 5-325 MG TABLET 1 TABLET PO (09:39)
--- NOTE | 2024-05-30 13:58 | P.DS_ITS ---
DS: Admitting Diagnosis Discharge Date 05/30/2024 Admitting Diagnosis * Acute appendicitis * Right lower lobe pulmonary nodule DS: Discharge Diagnosis Discharge Diagnosis (1) Perforated appendicitis: Code(s): K35.32 - Acute appendicitis with perforation, localized peritonitis, and gangrene, without abscess Status: Acute (2) Solitary pulmonary nodule present on computed tomography of lung: Code(s): R91.1 - Solitary pulmonary nodule Status: Acute DS: Summary Hospital Course Hospital Course: Patient began having right lower quadrant abdominal pain on 05/27/2024. This persisted and he came to the emergency room early on 05/28/2024. Evaluation there showed leukocytosis and right lower quadrant tenderness. CT scan showed acute appendicitis. Patient was taken to surgery by Dr. Smith and laparoscopic appendectomy was performed. He was noted to have a small perforation with only localized peritonitis. No abscess was seen. Following his surgery, he had more abdominal pain yesterday than 1 would typically expect. Labs and exam were checked. He was observed in the hospital on 05/29/2024. Sometime yesterday morning, his pain improved significantly. He has taken very little for pain medication since then. He has been eating and tolerating oral intake. He is independently ambulatory. He is discharged now in good condition. Status at Discharge Functional status at discharge: independent ambulation Overall status at discharge: patient is progressing back to baseline Time Spent with Patient Time attestation: Total time spent providing and/or coordinating discharge services: Time spent: Less than 30 minutes Exam Const: General: cooperative, comfortable, alert and awake GI: Inspection: incision (All are healing well) GI Palp: Yes Soft to palpation and Yes Tenderness to palpation present (GI) (Minimal incisional tenderness) Auscultation: normal bowel sounds DS: Data Data Completed and Pending Pending studies at discharge: Pending at discharge 05/28/24 15:05 Surgical [PTH] Routine Labs on day of discharge: Labs from last 24 hours 05/30/24 06:02 WBC 9.4 RBC 4.48 L Hgb 12.9 L Hct 39.9 L MCV 89.1 MCH 28.8 MCHC 32.3 RDW 13.7 Plt Count 166 MPV 11.4 H Sodium 140 Potassium 3.8 Chloride 104 Carbon Dioxide 28 Anion Gap 8 BUN 10 Creatinine 0.99 Estim Creat Clear Calc 116 Estimated GFR > 60 Glucose 93 Calcium 8.4 Discharge Plan Discharge Attending physician on discharge: Artem Smith Discharging Clinician: Deny Oconnor Anticipated Discharge Date/Time: 05/30/24 14:05 Patient Disposition: Home, Self-Care Activity: may shower, no straining, as tolerated and other - see discharge instructions Diet: regular Wound Care Instructions: incision open to air and other - see discharge instructions Discharge Instructions: DISCHARGE INSTRUCTION SHEET FOR HERNIA, GALLBLADDER AND APPENDIX SURGERIES DR. SMITH PATIENT TO TAKE HOME 1. May shower, no soaking in bath x 2weeks. 2. Call office for: * Wound increasingly painful or bleeding * Vomiting * Fever of greater than 101 degrees 3. If no bowel movement for three days, take 1 oz. (30 ml) Milk of Magnesia or MiraLax 17g 1 to 2 times daily. 4. No heavy lifting > 10-15 pounds x weeks for hernia repairs and 2 weeks for laparoscopic cholecystectomy or appendectomy. 5. No driving for 3 days or while taking narcotic pain medications. 6. Ice to surgical site for 48 hours (30 min on, then 30 min off). 7. Up walking 10-30 minutes three times per day. 8. Resume previous home medications. 9. Follow-up 10-14 days in office for wound check or as previously scheduled. ([id number]) 10. Oral pain medications prescription to be sent to pharmacy. Take Tylenol 500mg every 6 hours and Ibuprofen 600mg every 6 hours for the first 2 days, then as needed. 11. NUTRITION: Start out by drinking fluids and increase your diet as tolerated. If you experience nausea, try dry toast, crackers, and 7-UP. If nausea or vomiting persists, contact your surgeon?s office. 12. Gallbladders-Low Fat Diet for 2 weeks (send care note of low fat diet) 13. Inguinal Hernias-wear scrotal support for 48 hours 14. Abdominal Hernias-if sent home with abdominal binder, wear for the first 2 weeks (may remove to shower or at night to sleep). Revised September 2018 Patient Instructions: Antibiotic Form Patient Language: [place] Sudanese Stand Alone Forms: General Discharge Information Follow-up/Referrals: Artem Smith, [Physician] - 2 Weeks Discharge Medications: New oxycodone-acetaminophen [Endocet] 5-325 mg tablet 1 tablet PO Q4H PRN (Reason: pain) Qty: 10 0RF amoxicillin-pot clavulanate 875-125 mg tablet 1 tablet PO Q12H 7 Days Qty: 14 0RF metronidazole 500 mg tablet 500 mg PO Q8H 7 Days Qty: 21 0RF Continued montelukast 10 mg tablet 10 mg PO QPM sertraline 50 mg tablet 100 mg PO DAILY albuterol sulfate [ProAir HFA] 90 mcg/actuation HFA aerosol inhaler 2 puff INHALATION Q4-6H PRN (Reason: shortness of breath or wheezing) Qty: 18 0RF naproxen 250 mg tablet 250 mg PO BID PRN (Reason: pain) Date of admission: 05/28/24 10:42 Primary Care Provider: Macy,Rodri Admitting Provider: Artem Smith Attending physician on admission: Artem Smith Condition: Improved
[2024-05-30 14:00] VITALS: BP 126/83; PULSE 69; RESP 18; TEMP 36.4; O2SAT 99
== END 2024-05-30 15:50 | disposition home or self-care (01) ==
LOC: ANHED 09:43 → ANH3MEDSUR 11:21
PROVIDERS: Admitting Provider Surgery; Emergency Provider Emergency Medicine; PCP Family Medicine; Visit Provider Surgery
PROC: 0DTJ4ZZ Resection of Appendix, Percutaneous Endoscopic Approach (ICD-10-PCS; CPT 44970; principal; 2024-05-28 15:00)
DX: K35.32 Acute appendicitis with perforation, localized peritonitis, and gangrene, without abscess (principal); R91.1 Solitary pulmonary nodule; J45.909 Unspecified asthma, uncomplicated; K58.0 Irritable bowel syndrome with diarrhea; E66.9 Obesity, unspecified; Z68.30 Body mass index [BMI] 30.0-30.9, adult; Z79.51 Long term (current) use of inhaled steroids; Z79.899 Other long term (current) drug therapy
CPT/HCPCS: 44970; 36415; 74176; 80048; 80053; 81001; 83690; 85025; 85027; 88304; 96361; 96365; 96366; 96375; 96376; 99285; A9270; G0378; G0379; J0330; J1100; J1171; J1650; J1885; J2003; J2250; J2405; J2543; J2704; J3010; J7120

== ENCOUNTER → 2024-09-22 12:22 | Outpatient (REF) | payer SELFPAY ==
--- NOTE | 2024-09-22 12:22 | S_PTH ---
PATIENT: Adrian Pabon LOC: [facility] #:[id number] AGE/SX: 35/M ROOM: RE09/22/[address]: Sandi Gr MD : 1990 BED: DIS: SPEC #: [id number] RECD: 09/22/24 12:41 STATUS: HERIBERTO REJesus Manuel #: [id number] SILVINA: 09/22/24 12:[address]: Sandi Gr DEPT: [facility] Surgical RECD BY: Hayley Fernandez ENTERED: 09/22/24 12:42 SP TYPE: Surgical OTHR DR: Rodri CavazosMD Tissues: A - Skin Procedures: Hematoxylin and Eosin Stain Gross and Microscopic Level 4
--- OUTSIDE RECORDS SUMMARY | 2024-09-22 12:25 | XMS_ITS | Encounter Summary ---
Author Organization [facility] Address [address] [place] [address] Care Team Providers Care Mortgage Funder Name Role Phone Domo Patino DO Primary Care Provider + Encounter Details Date Type Department Care Team (Late st Contact Info) Description 09/21/2024 Results Follow-Up [facility] Family & Internal Medicine [address] [id number] [place] [address] Domo Patino DO [address] [place], [place] [id number] XR ANKLE RT M3V, VITAMIN B-12, HEPATITIS C ANTIBODY, Additional followed-up results: 5 Social History Tobacco Use Types Packs/Day Years Used Date Smoking Tobacco: Former Cigars Q uit: 10/31/2015 Smokeless Tobacco: Never Comments:Infrequent use of c igars more than 5 years ago for about a month Alcohol Use Standard Drinks/Week Comments Never 0 (1 standard drink = 0.6 oz pur e alcohol) Not since September 2018 Humiliation, Afraid, Rape, and Kick questionnair e Answer Date Recorded Within the last year, have y ou been afraid of your partner or ex-partner? No 10/30/2020 Within the last year, have y ou been humiliated or emotionally abused in other ways by your partner or ex-partner? No Within the last year, have y ou been kicked, hit, slapped, or otherwise physically hurt by your partner or ex-partner? No 10/30/2020 Within the last year, have y ou been raped or forced to have any kind of sexual activity by your partner or ex-partner? No 10/30/2020 Social Connection and Isolat ion Panel [NHANES] Answer Date Recorded In a typical week, how many times do you talk on the phone with family, friends, or neighbors? More than three times a week 10/30/2020 How often do you get togethe r with friends or relatives? More than three times a week 10/30/2020 How often do you attend chur ch or nondenominational services? Never 10/30/2020 Do you belong to any clubs o r organizations such as holiness groups, unions, fraternal or athletic groups, or school groups? No 10/30/2020 How often do you attend meet ings of the clubs or organizations you belong to? Never 10/30/2020 Are you , , di vorced, , never , or living with a partner? 10/30/2020 AUDIT-C Answer Date Recorded Q1: How often do you have a drink containing alc ohol? Never 10/30/2020 Average Number of Drinks Not on file 021 Frequency of Binge Drinking Not on file 10/05 Overall Financial Resource Strain (CARDIA) Answe r Date Recorded How hard is it for you to pa y for the very basics like food, housing, medical care, and heating? Somewhat hard 10/30/2020 PHQ-2 Answer Date Recorded Patient Health Questionnaire-2 Score 2 09/14/2024 [facility] - Occupational Stress Questionnaire Answer Date Recorded Do you feel stress - tense, restless, nervous, or anxious, or unable to sleep at night because your mind is troubled all the time - these days? Rather much 10/30/2020 Exercise Vital Sign Answer Date Recorde d On average, how many days pe r week do you engage in moderate to strenuous exercise (like a brisk walk)? 0 days 10/30/2020 On average, how many minutes do you engage in exercise at this level? 0 min 10/30/2020 Hunger Vital Sign Answer Date Recorded Within the past 12 months, y ou worried that your food would run out before you got the money to buy more. Sometimes true Within the past 12 months, t he food you bought just didn't last and you didn't have money to get more. Sometimes true PRAPARE - Transportation Answer Date Re corded In the past 12 months, has l ack of transportation kept you from medical appointments or from getting medications? Yes 10/05 In the past 12 months, has l ack of transportation kept you from meetings, work, or from getting things needed for daily living? Yes 10/30/2020 Housing Stability Vital Sign Answer Jaquan e Recorded In the last 12 months, was t here a time when you were not able to pay the mortgage or rent on time? Yes 10/30/2020 In the last 12 months, how many places have you lived? 1 10/30/2020 In the last 12 months, was t here a time when you did not have a steady place to sleep or slept in a penitentiary (including now)? No 10/30/2020 Sex and Gender Information Value Date Recorded Sex Assigned at Male 09/14/2024 12:47 PM CDT Legal Sex Male 7:53 PM CDT Gender Identity Male 09/14/2024 12:47 PM CDT Sexual Orientation Straight 09/14/2024 12 :47 PM CDT Occupation Industry Job Start Date Job End Date Not on file Not on file Not on file Not on file documented as of this encounter Functional Status * RETIRED Are you deaf or do you have serious difficulty hearing Answer Date of Assessment Author Status No 10/30/2020 12:40 PM CDT Acti ve * RETIRED Are you blind or do you have serious difficulty seeing, even when wearing glasses? Answer Date of Assessment Author Status No 10/30/2020 12:40 PM CDT Acti ve * Do you have serious difficulty walking or climbing stairs? Answer Date of Assessment Author Status No 10/30/2020 12:40 PM CDT Levy Smith RN Active * Do you have difficulty dressing or bathing? Answer Date of Assessment Author Status No 10/30/2020 12:40 PM CDT Levy Smith RN Active * Because of a physical, mental, or emotional condition, do you have difficulty doing errands alone such as visiting a doctor's office or shopping? Answer Date of Assessment Author Status No 10/30/2020 12:40 PM CDT Levy Smith RN Active documented as of this encounter Mental Status * Because of a physical, mental, or emotional condition, do you have serious difficulty concentrating, remembering, or making decisions? Answer Entry Date Author Status Yes 10/30/2020 12:40 PM CDT Levy Smith RN Active documented in this encounter Progress Notes * Juliana Huerta MA - 09/22/2024 9:38 AM CDT ----- Message from Dr. Domo Patino sent at 09/21/2024 10:16 AM CDT ----- Pt has elevated cholesterol. We recommend weight loss, aerobic exercise, and eating diets lower in saturated fats. Pt is low in Vitamin D. Recommend 2000 IU supplementation daily. Other labs are within acceptable limits. Can repeat labs in 1-2 years or sooner if needed. See radiology result aswell. ----- Message ----- From: Kal [id number] Sent: 09/14/2024 7:33 PM CDT To: Domo Patino DO * Juliana Hureta MA - 09/22/2024 8:45 AM CDT MyChart message sent to patient with provider's comments and recommendations. Awaiting response from patient about PT. 09/22/2024 8:47 AM ----- Message from Dr. Domo Patino sent at 09/21/2024 9:56 AM CDT ----- XR shows no pathology. Would consider PT if pt would like to treat this. Can refer if pt would liketo try. ----- Message ----- From: Mack [id number] Sent: 09/14/2024 2:13 PM CDT To: Domo Patino DO documented in this encounter Plan of Treatment Upcoming Encounters Date Type Department Care Team (Late st Contact Info) Description 09/24/2024 5:30 PM CDT Hospital Encounter [facility] Sleep Lab [address] [place] [address] Domo Patino DO [address] [place] [address] documented as of this encounter Goals Goal Patient Goal Type Associated Problems Recent Progress Patient-Stated? Author Family - family caregiver with be involved in care transitions and discharge planning General No Shamika Matamoros, DOCUMENTATION DESIGNER documented as of this encounter Visit Diagnoses Not on filedocumented in this encounter Additional Health Concerns Assessment Noted Time PHQ-9 Depression Total Score: 3 10/31/19 21 12:39 PM CDT documented as of this encounter Care Teams Mortgage Funder Relationship Specialty Start Date End Date Domo Patino DO Formerly named [facility] [place] [address] PCP - General FAMILY PRACTICE 09/14/24 documented as of this encounter
--- OUTSIDE RECORDS SUMMARY | 2024-09-22 12:25 | XMS_ITS | Encounter Summary ---
Author Organization [facility] Address [address] [place] [address] Care Team Providers Care Automatic Chief Name Role Phone Rodri Cavazos MD Primary Care Provider Un available Leonarda Hernandez MD Primary Care Provider + Domo Patino DO Primary Care Provider + Encounter Details Date Type Department Care Team (Late st Contact Info) Description 08/17/2023 Social Game Universet Message Enc [facility] Medical [facility] Family Medicine [address] [address] Rodri Cavazos MD Issues I eventually need addressed Social History Tobacco Use Types Packs/Day Years Used Date Smoking Tobacco: Former Cigars Q uit: 10/31/2015 Smokeless Tobacco: Never Comments:Infrequent use of c igars more than 5 years ago for about a month Alcohol Use Standard Drinks/Week Comments Not Currently 0 (1 standard drink = 0.6 oz [...] 10/30/2020 How often do you attend chur or latter-day services? Never 10/30/2020 Do you belong to any clubs o r organizations such as mormonism groups, unions, fraternal or athletic groups, or [...] Somewhat hard 10/30/2020 PHQ-2 Answer Date Recorded PHQ-2 Score - If the patient scores above 3, please move on to questions 3-9 3 10/30/2020 [facility] - Occupational Stress Questionnaire Answer Date Recorded [...] place to sleep or slept in a half-way (including now)? No 10/30/2020 Sex and Gender Information Value Date Recorded Sex Assigned at Male 09/14/2024 12:47 PM CDT Legal Sex Male 7:53 PM CDT Gender Identity Male 09/14/2024 12:47 PM CDT Sexual Orientation Straight 09/14/2024 12 :47 PM CDT documented as of this encounter Functional Status [...] Assessment Author Status No 10/30/2020 12:40 PM MONETT Levy Smith RN Active * Because of [...] documented in this encounter Progress Notes * Sonia Hopkins MA - 08/22/2023 7:21 AM CDT This is being addressed in another encounter. * Rodri Cavazos MD - 08/21/2023 8:53 PM CDT This will require another clinic visit-preferably in person. I also received [facility] paperwork to complete which could be completed via video visit but since we have other issues to address, probably best to handle both his issues detailed below as well as the [place] paperwork in the same clinic visit. Please schedule. * Rodri Cavazos MD - 08/21/2023 8:53 PM CDTFrom: Adrian Pabon To: Dr. Rodri Cavazos Sent: 08/17/2023 10:26 AM CDT Subject: Issues I eventually need addressed I am very forgetful and keep forgetting to ask about a few issues I have been having as of late. Going to keep it simple with an outline The head bump came back partially, the nodule on the back of my head (parietal right side). Not as irritating as it once was but when touched it does give me headaches like before. Previously it was removed by a plastic surgeon in [place] you had referred me to. My ankles and feet are in pain pretty frequently throughout the years for various reasons. 5th metatarsal pain when walking for my right foot and both of my achilles tendons feel as if they are goingto rip off the back of my heel randomly some weeks (never on the same week thankfully). Currently (started 08/14/2023) my right achilles has a swelling above it with slight discoloration and it is very painful to move my foot and to walk, no precipitating events. Woke up after a heavy rainstorm and it was swollen and painful. Usually these happen about 2 to 3 times a year for a month or so. Been having neck pain on and off for a few years, sometimes limits my ability to look left. Tried stretches to no avail. 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 Stretches do not help, could be age related. I just try not to bend ever. Prior to pandemic being in full swing () I had begun working on resolving some of my more prominent allergies with the [facility] in [place]. I am unsure if I need to be re-referred to them. documented in this encounter Plan of Treatment Upcoming Encounters Date Type Department Care Team (Late st Contact Info) Description 09/24/2024 5:30 PM CDT Hospital Encounter [facility] Sleep Lab [address] [place] [address] Domo Patino DO [address] [place] [address] documented as of this encounter Goals Goal Patient Goal Type Associated Problems Recent Progress Patient-Stated? Author Family - family caregiver with be involved in care transitions and discharge planning General No Shamika Matamoros, VENETIAN BLIND MECHANIC documented as of this encounter Visit Diagnoses Not on filedocumented in this encounter Additional Health Concerns Assessment Noted Time PHQ-9 Depression Total Score: 3 10/31/19 21 12:39 PM CDT documented as of this encounter Care Teams Automatic Chief Relationship Specialty Start Date End Date Rodri Cavazos MD PCP - General FAMILY PRACTICE 05/25/19 02/20/24 Leonarda Hernandez MD [address] [place] [address] PCP - General FAMILY PRACTICE 02/21/24 09/13/24 Domo Patino DO [address] [place] [address] PCP - General FAMILY PRACTICE 09/14/24 documented as of this encounter
--- OUTSIDE RECORDS SUMMARY | 2024-09-22 12:25 | XMS_ITS | Encounter Summary ---
Author Organization [facility] Address [address] [place] [address] Care Team Providers Care Plant Engineer Name Role Phone Adrian Pabon MD Primary Care Provider [phone] Rodri Cavazos MD Primary Care Provider Un available Leonarda Hernandez MD Primary Care Provider + Domo Patino DO Primary Care Provider + Encounter Details Date Type Department Care Team (Late st Contact Info) Description 03/09/2017 Abstract [facility] [place], [place] [id number] , Generic Conversion, Social History Tobacco Use Types Packs/Day Years Used Date Smoking Tobacco: Never Assessed Sex and Gender Information Value Date Recorded Sex Assigned at Male 09/14/2024 12:47 PM CDT Legal Sex Male 7:53 PM CDT Gender Identity Male 09/14/2024 12:47 PM CDT Sexual Orientation Straight 09/14/2024 12 :47 PM CDT documented as of this encounter Plan of Treatment Upcoming Encounters Date Type Department Care Team (Late Contact Info) Description 09/24/2024 5:30 PM CDT Hospital Encounter [facility] Sleep Lab [address] [place], [place] [id number] Domo Patino DO [address] [place] [address] documented as of this encounter Visit Diagnoses Not on filedocumented in this encounter Additional Health Concerns Infection Onset Date Last Indicated Resolved Time COVID-19 Rule Out 04/11/2020 04/11/2020 04/15/2020 4:00 AM DIRECTOR ECONOMIC COVID-19 Confirmed 04/11/2020 04/11/2020 12:35 AM DIRECTOR ECONOMIC COVID-19 Rule Out 10/30/2020 10/30/2020 10/30/2020 12:15 PM CDT documented as of this encounter Care Teams Plant Engineer Relationship Specialty Start Date End Date Adrian Pabon MD [address] [place] [address] PCP - General 06/18/15 05/24/19 Rodri Cavazos MD [address] [place] [address] PCP - General FAMILY PRACTICE 05/25/19 Leonarda Hernandez MD [address] [facility] [address] [place] [address] PCP - General FAMILY PRACTICE 02/21/24 09/13/24 Domo Patino DO [address] [place] [address] PCP - General FAMILY PRACTICE 09/14/24 documented as of this encounter
--- OUTSIDE RECORDS SUMMARY | 2024-09-22 12:25 | XMS_ITS | Encounter Summary ---
Author Organization [facility] Address [address] [place] [address] Care Team Providers Care Electric Tripper Machine Operator Name Role Phone Rodri Cavazos MD Primary Care Provider Un available Leonarda Hernandez MD Primary Care Provider + Domo Patino DO Primary Care Provider + Encounter Details Date Type Department Care Team (Late st Contact Info) Description 08/17/2023 Nasty Galt Message Enc [facility] Medical [facility] Medicine [address] [address] Rodri Cavazos MD ADA Document for Adrian Pabon Social History Tobacco Use Types Packs/Day Years [...] often do you attend chur ch or hinduism services? Never 10/30/2020 Do you belong to any clubs o r organizations such as anglican groups, unions, fraternal or athletic groups, or [...] move on to questions 3-9 3 10/30/2020 [facility] - Occupational Stress Questionnaire Answer Date [...] place to sleep or slept in a longterm (including now)? No 10/30/2020 Sex and Gender [...] documented in this encounter Progress Notes * Rodri Cavazos MD - 08/21/2023 8:54 PM CDT This is pretty much an FMLA-like form normally would require a video visit but he has other physical complaints that need an in-clinic visit to address. Please schedule. * Rodri Cavazos MD - 08/21/2023 8:54 PM CDTFrom: Adrian Pabon To: Dr. Rodri Cavazos Sent: 08/17/2023 10:10 AM CDT Subject: ADA Document for Adrian Pabon Apparently work wants the document on their form and wouldn't accept the letter you wrote for me. documented in this encounter Plan of Treatment Upcoming Encounters Date Type Department Care Team (Late st Contact Info) Description 09/24/2024 5:30 PM CDT Hospital Encounter [facility] Sleep Lab [address] [place] [address] Domo Patino, DO [facility] [place] [address] documented as of this encounter Goals Goal Patient Goal Type Associated Problems Recent Progress Patient-Stated? Author Family - family caregiver with be involved in care transitions and discharge planning General No Shamika Matamoros, DANCE ENTERTAINER documented as of this encounter Visit Diagnoses Not on filedocumented in this encounter Additional Health Concerns Assessment Noted Time PHQ-9 Depression Total Score: 3 10/31/19 21 12:39 PM CDT documented as of this encounter Care Teams Electric Tripper Machine Operator Relationship Specialty Start Date End Date Rodri Cavazos MD PCP - General FAMILY PRACTICE 05/25/19 02/20/24 Leonarda Hernandez MD [address] [address] PCP - General FAMILY PRACTICE 02/21/24 09/13/24 Domo Patino DO [address] [place] [address] PCP - General FAMILY PRACTICE 09/14/24 documented as of this encounter
--- OUTSIDE RECORDS SUMMARY | 2024-09-22 12:25 | XMS_ITS | Clinical Summary ---
Author Organization [facility] Address [address] [place] [id number] Care Team Providers Care Building Coordinator Name Role Phone Manas Bennett DO Primary Care Provider + Allergies No known active allergies Medications fexofenadine 180 MG tablet Take 2 tablets (360 mg total) by mouth daily. Active sertraline (ZOLOFT) 100 MG tabletIndicatio ns:Anxiety and depression Take 1 tablet (100 mg total) by mouth daily. 90 tablet 1 12/27/19 22 Active albuterol sulfate HFA 108 (90 Base) MCG/ACT inhaler Inhale 2 puffs into the lungs every 4 (four) hours as needed. Active EPINEPHrine (AUVI-Q) 0.3 MG/0.3ML injection Active fluticasone propionate (FLONASE) 50 MCG/ACT nasal spray 2 sprays by Nasal route as needed for Allergies (prn). Active montelukast (SINGULAIR) 10 MG tabletIndicatio ns:Allergic rhinitis, unspecified seasonality, unspecified trigger Take 1 tablet (10 mg total) by mouth nightly at bedtime. 90 tablet 3 10/08/19 24 Active naproxen (NAPROSYN) 250 MG tablet Take 2 tablets (500 mg total) by mouth every evening. 07/07/19 25 Active ibuprofen (MOTRIN) 400 MG tablet Take 1 tablet (400 mg total) by mouth every 6 (six) hours as needed for Pain. 025 Discontinued(P t. elected to discontinue med) Nitroglycerin 0.4 % OintmentIndicat ions:Rectal fissure Place 1 g rectally daily. 30 g 1 08/27/19 24 025 Discontinued(P t. elected to discontinue med) Active Problems Problem Noted Date Diagnosed Date Marital problems 12/26/2021 Anxiety and depression 12/26/2021 Bleeding hemorrhoids 12/26/2021 Cubital tunnel syndrome of both upper extremitie s 12/26/2021 Chronic bilateral low back pain without sciatica 12/26/2021 Acute cholecystitis 10/30/2020 Benign neuroma 06/09/2015 Allergic rhinitis 06/21/2014 Attention or concentration deficit 06/21/2014 Glaucoma suspect 06/21/2014 Irritable bowel syndrome (IBS) 12/04/2002 Resolved Problems Problem Noted Date Diagnosed Date Resolved Date Plantar warts 06/09/2015 08/27/2023 Encounter for preventive health examination 06/15/2014 01/15/2020 Encounters Date Type Department Care Team Description 09/21/2024 Results Follow-Up [facility] [address] [address] Manas Bennett, XR ANKLE RT M3V, VITAMIN B-12, HEPATITIS C ANTIBODY, Additional followed-up results: 5 09/14/2024 1:00 PM CDT Office Visit [facility] [address] [address] Manas Bennett, Meet and Greet Provider (Patient presents to [facility] care today. ); Fatigue (The patient states he has noticed recent onset of feeling more fatigue than normal. ) 09/14/2024 - 09/14/2024 11:59 PM CDT Hospital Encounter [facility] [address] [place] [address] Manas Bennett, Discharge Disposition: Home or Self Care (Routine Discharge) 09/14/2024 Travel from Last 3 Months Immunizations Immunization Administration Dates Next Due Flucelvax 2 YRS+ (Multi-Dose Vial) 05/07/2019 PFIZER COVID-19 (12+) MRNA, LNP-S, PF, CHOLO-SUCROSE, 30 MCG/0.3 ML (COMIRNATY) 09/14/2024 PFIZER COVID-19 (KERR CAP), MRNA, LNP-S, PF, 30 MCG/0.3 ML CHOLO-SUCROSE, IM 08/04/2020 PFIZER COVID-19 (ORIGINAL FO RMULATION, PURPLE CAP) mRNA, LNP-S, PF, 30 MCG/0.3 ML DOSE 07/14/2020 PFIZER COVID-19 BIVALENT (12 +) mRNA, LNP-S, PF, 30 MCG/0.3 ML DOSE 03/06/2021 Tdap (Adacel) 09/14/2024 Family History Medical History Relation Comments Hypertension Father Mental Health Maternal Grandmother Diabetes Mother hypothyroidism Sister 1 infertility Sister 2 No Known Problems Sister 3 Relation Status Comments Father Alive Maternal Grandmother Mother Alive Sister 1 Alive Sister 2 Alive Sister 3 Alive Social History Tobacco Use Types Packs/Day Years Used Date Smoking Tobacco: Former Cigars Q uit: 10/31/2015 Smokeless Tobacco: Never Tobacco Cessation:Counseling Given: Yes Comments:Infrequent use of cigars more than 5 years ago for about [...] week 10/30/2020 How often do you attend [facility] or adventist services? Never 10/30/2020 Do you belong to any clubs o r organizations such as tenriism groups, unions, fraternal or athletic groups, or [...] Recorded Patient Health Questionnaire-2 Score 2 09/14/2024 [facility]ational Stress Questionnaire Answer Date Recorded [...] place to sleep or slept in a correction (including now)? No 10/30/2020 Sex and Gender Information Value Date Recorded Sex Assigned at Male 09/14/2024 12:47 PM CDT Legal Sex Male 7:53 PM CDT Gender Identity Male 09/14/2024 12:47 PM CDT Sexual Orientation Straight 09/14/2024 12 :47 PM CDT Occupation Industry Job Start Date Job End Date Not on file Not on file Not on file Not on file Last Filed Vital Signs Vital Sign Reading Time Taken Comments Blood Pressure 132/84 09/14/2024 1:05 PM CDT Pulse 76 09/14/2024 1:05 PM CDT Temperature 36.8 C (98.2 F) 09/14/2024 1:05 PM CDT Respiratory Rate 16 09/14/2024 1:05 PM CDT Oxygen Saturation 98% 09/14/2024 1:05 PM CDT Inhaled Oxygen Concentration - - Weight 117.4 kg (258 lb 12.8 oz) 09/14/2024 1:05 PM CDT Height 190.5 cm (6' 3) 09/14/2024 1:05 PM CDT Body Mass Index 32.35 09/14/2024 1:05 PM CDT Plan of Treatment Upcoming Encounters Date Type Department Care Team (Late st Contact Info) Description 09/24/2024 5:30 PM CDT Hospital Encounter [facility] [address] [place] [address] Manas Bennett P, DO [address] [place] [address] Health Maintenance Due Date Last Done Comments Annual Physical 12/26/2022 12/26/2021, 06/0 12/2020, 06/17/2019 Hepatitis B Vaccines (1 of 3 - 19+ 3-dose series) 10/15/2024 Postponed from 2011 (Future Appointment) DTaP, Tdap and Td Vaccines (2 - Td or Tdap) 09/14/2034 09/14/2024 COVID-19 Vaccine Completed 09/14/2024, 05/2020, 08/04/2020, Additional history exists Hepatitis C Completed 09/14/2024 PHQ-2 (Physician [place]) Completed 09/14/2024 HPV Vaccines Aged Out No longer eligi ble based on patient's age to complete this topic Meningococcal B Vaccine Aged Out No l onger eligible based on patient's age to complete this topic Meningococcal Vaccine Aged Out No ronald crystal eligible based on patient's age to complete this topic Pneumococcal Vaccine: Pediatrics (0 to 5 Years) and At-Risk Patients (6 to 49 Years) Aged Out No longer eligible based on patient's age to complete this topic RSV Immunizations Under 20 Months Aged Out No longer eligible based on patient's age to complete this topic Goals Goal Patient Goal Type Associated Problems Recent Progress Patient-Stated? Author Family - family caregiver with be involved in care transitions and discharge planning General No Shamika Matamoros, OIL EXPLORATION ENGINEER Procedures Procedure Name Priority Date/Time Associated Diagnosis Comments TSH W/REFLEX Routine 09/14/2024 2:20 PM CDT Annual physical exam Screening for lipid disorders Screening for endocrine, metabolic and immunity disorder CBC W/DIFF AUTOMATED Routine 09/14/2024 2:20 PM CDT Annual physical exam Screening for lipid disorders Screening for endocrine, metabolic and immunity disorder COMPREHENSIVE METABOLIC PANEL Routine 09/14/2024 2:20 PM CDT Annual physical exam Screening for lipid disorders Screening for endocrine, metabolic and immunity disorder LIPID PANEL Routine 09/14/2024 2:20 PM CDT Annual physical exam Screening for lipid disorders Screening for endocrine, metabolic and immunity disorder VITAMIN D, 25 OH Routine 09/14/2024 2:20 PM CDT Annual physical exam Screening for lipid disorders Screening for endocrine, metabolic and immunity disorder Fatigue, unspecified type BMI 32.0-32.9,adult HEPATITIS C ANTIBODY Routine 09/14/2024 2:20 PM CDT Annual physical exam Screening for lipid disorders Screening for endocrine, metabolic and immunity disorder Need for hepatitis C screening test VITAMIN B-12 Routine 09/14/2024 2:20 PM CDT Annual physical exam Screening for lipid disorders Screening for endocrine, metabolic and immunity disorder Fatigue, unspecified type XR ANKLE RT M3V Routine 09/14/2024 2:06 PM CDT Chronic pain of right ankle COLLECTION VENOUS BLOOD VENIPUNCTURE Routine 09/14/2024 1:32 PM CDT Annual physical exam Screening for lipid disorders Screening for endocrine, metabolic and immunity disorder from Last 3 Months Results * TSH W/REFLEX (09/14/2024 2:20 PM CDT) TSH 1.588 0.358 - 3.740 uIU/ML 09/14/2024 7:52 PM CDT [facility] 09/14/2024 2:20 PM CDT Manas Bennett DO LABORATORY Final Re sult Performing Organization Address City/[facility]/ZIP Co de Phone Number [facility] [address] [place] [address], [place] [phone] * VITAMIN B-12 (09/14/2024 2:20 PM CDT) VITAMIN B12 S/P/B 652 193 - 986 PG/ML 09/14/2024 7:52 PM CDT [facility] 09/14/2024 2:20 PM CDT Manas Bennett DO LABORATORY Final Re sult Performing Organization Address City/[facility]/ZIP Co de Phone Number [facility] [address] [place] [address], [place] [phone] * (ABNORMAL) COMPREHENSIVE METABOLIC PANEL (09/14/2024 2:20 PM CDT) [facility] SODIUM S/P/B 143 136 - 145 MMOL/L 09/14/2024 7:52 PM T [facility] POTASSIUM S/P/B 4.3 3.5 - 5.1 MMOL/L 09/14/2024 7:52 PM CDT [facility] CHLORIDE S/P/B 104 98 - 107 MMOL/L 09/14/2024 7:52 PM CDT [facility] CO2 29.6 21 - 32 MMOL/L 09/14/2024 7:52 PM T [facility] GLUCOSE 73 70 - 99 MG/DL 09/14/2024 7:52 PM CDT [facility] BUN 13 7 - 18 MG/DL 09/14/2024 7:52 PM T [facility] CREATININE S/P/B 1.28 0.70 - 1.30 MG/DL 09/14/2024 7:52 PM T [facility] CALCIUM S/P/B 9.6 8.4 - 10.5 MG/DL 09/14/2024 7:52 PM T [facility] BILIRUBIN TOTAL S/P/B 0.5 0.2 - 1.0 MG/DL 09/14/2024 7:52 PM T [facility] ALKALINE PHOSPHATASE S/P/B 84 45 - 115 U/L 09/14/2024 7:52 PM CDT [facility] AST 15 15 - 37 U/L 09/14/2024 7:52 PM CDT [facility] ALT 42 16 - 63 U/L 09/14/2024 7:52 PM CDT [facility] TOTAL PROTEIN S/P/B 7.5 6.4 - 8.2 G/DL 09/14/2024 7:52 PM T [facility] ALBUMIN S/P/B 4.5 3.4 - 5.0 G/DL 09/14/2024 7:52 PM CDT [facility] ANION GAP 9.4 5 - 15 MMOL/L 09/14/2024 7:52 PM CDT [facility] Comment:REFERENCE RANGE NOT ESTABLISHED OSMOLALITY (CALC) 295 MOSM/KG 025 7:52 PM CDT [facility] Comment:REFERENCE RANGE NOT ESTABLISHED GFR ESTIMATE 76(L) >90 ML/MIN/1. 73 M2 09/14/2024 7:52 PM CDT [facility] GFR NOTES GFR REFERENCE S: 09/14/2024 7:52 PM CDT [facility] Comment: THE ESTIMATED GFR IS CALCULATED USING THE 2020 CKD-EPI EQUATION. THE FOLLOWING CATEGORIES FOR GRADING RENAL FUNCTION ARE RECOMMENDED BY THE INTERNATIONAL SOCIETY OF NEPHROLOGY (KDIGO 2012 CLINICAL PRACTICE GUIDELINE). G1,NORMAL OR HIGH: >89 ml/min/1.73 m2 G2,MILDLY DECREASED: 60-89 ml/min/1.73 m2 G3A,MILDLY TO MODERATELY DECREASED: 45-59 ml/min/1.73 m2 G3B,MODERATELY TO SEVERELY DECREASED: 30-44 ml/min/1.73 m2 G4,SEVERELY DECREASED: 15-29 ml/min/1.73 m2 G5,KIDNEY FAILURE: <15 ml/min/1.73 m2 09/14/2024 2:20 PM CDT us Manas Bennett DO LABORATORY Final Re sult [facility] [address] [place] [address], * (ABNORMAL) LIPID PANEL (09/14/2024 2:20 PM CDT) CHOLESTEROL 199 <200 MG/DL 09/14/2024 7:52 PM CDT [facility] TRIGLYCERIDES 269(H) <150 MG/DL 09/14/2024 7:52 PM CDT [facility] HDL 44 >40 MG/DL 09/14/2024 7:52 PM CDT [facility] LDL-C 101(H) <100 MG/DL 09/14/2024 7:52 PM CDT [facility] VLDL CALCULATION 54(H) 5 - 28 MG/DL 09/14/2024 7:52 PM CDT [facility] CHOL/HDL RATIO 4.5(H) 0.0 - 4.0 09/14/2024 7:52 PM CDT [facility] LDL/HDL 2.3(H) 0.41 - 2.13 09/14/2024 7:52 PM CDT [facility] NON HDL CHOLESTEROL 155(H) <140 MG/DL 09/14/2024 7:52 PM CDT [facility] 09/14/2024 2:20 PM CDT Manas Bennett LABORATORY Final Re sult Performing Organization Address City/[facility]/ZIP Co de Phone Number [facility] [address] [place] [address], [place] [phone] * HEPATITIS C ANTIBODY (09/14/2024 2:20 PM CDT) HEPATITIS C AB NON-REACTI VE NON-REACT RAMON 09/14/2024 9:55 PM CDT [facility] Comment: ANTIBODIES TO HCV NOT DETECTED. DOES NOT EXCLUDE THE POSSIBILITY OF EXPOSURE TO HCV. 09/14/2024 2:20 PM CDT Manas Bennett DO LABORATORY Final Re sult [facility] [address] [place] [address], [place] [phone] [id number] * (ABNORMAL) CBC W/DIFF AUTOMATED (09/14/2024 2:20 PM CDT) [facility] Signature WBC 6.69 4.00 - 10.80 x10'3/uL 09/14/2024 7:32 PM CDT [facility] RBC 5.52 4.50 - 6.10 x10'6/uL 09/14/2024 7:32 PM [address] [facility] HGB 16.0 13.0 - 18.0 G/DL 09/14/2024 7:32 PM CDT [facility] HCT 47.7 37.0 - 52.0 % 09/14/2024 7:32 PM CDT [facility] MCV 86.4 78.0 - 100.0 FL 09/14/2024 7:32 PM CDT [facility] MCH 29.0 27.0 - 31.0 PG 09/14/2024 7:[address] [facility] MCHC 33.5 33.0 - 36.0 G/DL 09/14/2024 7:32 PM CDT [facility] RDW 13.2 11.5 - 14.5 % 09/14/2024 7:32 PM CDT [facility] PLT 251 150 - 350 x10'3/uL 09/14/2024 7:32 PM CDT [facility] MPV 10.8(H) 7.4 - 10.4 FL 09/14/2024 7:32 PM CDT [facility] DIFFERENTIAL TYPE AUTOMATED DIFFERENTIAL 09/14/2024 7:32 PM CDT [facility] NEUTROPHILS % 49.2 % 09/14/2024 7:32 PM CDT [facility] LYMPHOCYTES % 39.2 % 09/14/2024 7:32 PM CDT [facility] MONOCYTES % 9.1 % 09/14/2024 7:32 PM CDT [facility] EOSINOPHILS % 2.1 % 09/14/2024 7:32 PM CDT [facility] BASOPHILS % 0.3 % 09/14/2024 7:32 PM CDT [facility] IMMATURE GRANS % 0.1 % 09/14/2024 7:32 PM CDT [facility] ABS. NEUTROPHILS 3.29 1.60 - 8.30 x10'3/uL 09/14/2024 7:32 PM CDT [facility] ABS. LYMPHOCYTES 2.62 0.80 - 4.70 x10'3/uL 09/14/2024 7:32 PM CDT [facility] ABS. MONOCYTES 0.61 0.00 - 1.50 x10'3/uL 09/14/2024 7:32 PM CDT [facility] ABS. EOSINOPHILS 0.14 0.00 - 0.40 x10'3/uL 09/14/2024 7:32 PM CDT [facility] ABS. BASOPHILS 0.02 0.00 - 0.20 x10'3/uL 09/14/2024 7:32 PM CDT [facility] ABS. IMMATURE GRANULOCYTES 0.01 0.00 - 0.03 x10'3/uL 09/14/2024 7:32 PM CDT [facility] 09/14/2024 2:20 PM CDT us Maans Bennett DO LABORATORY Final Re sult [facility] [address] [place] [address], * (ABNORMAL) VITAMIN D, 25 OH (09/14/2024 2:20 PM CDT) VITAMIN D 25 HYDROXY TOTAL S/P/B 23.3(L) 30 - 100 NG/ML 09/14/2024 7:52 PM CDT [facility] Comment: DEFICIENT <20 INSUFFICIENT 20-30 SUFFICIENT 30-100 09/14/2024 2:20 PM CDT Manas Bennett DO LABORATORY Final Re sult [facility] [address] [facility] [place] [address], * XR ANKLE RT M3V (09/14/2024 2:06 PM CDT) Anatomical Region Laterality Modality Ankle Radiographic Jacqueline ging 09/14/2024 2:12 PM CDT Impressions 09/14/2024 2:12 PM CDT IMPRESSION: No acute findings Ordered By: MANAS BENNETT Interpreted By: Augustus Honeycutt MD, 09/14/2024 2:12 PM Narrative 09/14/2024 2:12 PM CDT [facility] [place] [address] 3 VIEWS OF THE RIGHT ANKLE Clinical History: Pain Comparison: None Findin views of the right ankle demonstrate the bony elements to be intact. There is no evidence of fracture or dislocation. The ankle mortise is symmetric. The surrounding soft tissues appear normal. Procedure Note Augustus Honeycutt MD - 09/14/2024 [facility] [place] [address] 3 VIEWS OF THE RIGHT ANKLE Clinical History: Pain Comparison: None Findin views of the right ankle demonstrate the bony elements to be intact.There is no evidence of fracture or dislocation. The ankle mortise issymmetric. The surrounding soft tissues appear normal. IMPRESSION: No acute findings Ordered By: MANAS BENNETT Interpreted By: Augustus Honeycutt MD, 09/14/2024 2:12 PM Manas Bennett DO GENERAL IMAGING Final Re sult from Last 3 Months Advance Directives * Full Code (Latest Code Status on File) Date Activated Date Inactivated Comments 10/30/2020 11:28 AM 11/01/2020 3:02 PM Care Teams Building Coordinator Relationship Specialty Start Date End Date Manas Bennett DO [facility] [place] [address] PCP - General FAMILY PRACTICE 09/14/24
--- OUTSIDE RECORDS SUMMARY | 2024-09-22 12:25 | XMS_ITS | Clinical Summary ---
Author Organization [facility] Address [address] [place] [address] Phone Care Team Providers Care Mysql Dba Name Role Phone Unavailable Primary Care Provider Unavailabl e Allergies No known active allergies Medications fexofenadine HCl (FEXOFENADINE ORAL) Take by mouth. Active Encounters Date Type Department Care Team Description 08/04/2024 External Device Data [facility] ABSTRACTION Provider, Abstract 08/04/2024 External Device Data [facility] ABSTRACTION Provider, Abstract 08/04/2024 External Device Data [facility] ABSTRACTION Provider, Abstract from Last 3 Months Social History Tobacco Use Types Packs/Day Years Used Date Smoking Tobacco: Never Smokeless Tobacco: Never Tobacco Cessation:Counseling Given: Not Answered Alcohol Use Standard Drinks/Week Comments Never 0 (1 standard drink = 0.6 oz pur e alcohol) Feeling Safe Answer Date Recorded Are you in a relationship wi th someone who hurts you emotionally and/or physically? No 08/18/2023 Sex and Gender Information Value Date Recorded Sex Assigned at Not on file Legal Sex Male 9:41 AM CDT Gender Identity Not on file Sexual Orientation Not on file Last Filed Vital Signs Vital Sign Reading Time Taken Comments Blood Pressure 138/81 08/18/2023 9:49 AM CDT Pulse 96 08/18/2023 9:49 AM CDT Temperature 36.9 C (98.5 F) 08/18/2023 9:49 AM CDT Respiratory Rate 18 08/18/2023 9:49 AM CDT Oxygen Saturation 100% 08/18/2023 9:49 AM CDT Inhaled Oxygen Concentration - - Weight 112.5 kg (248 lb) 08/18/2023 9:49 AM CDT Height 193 cm (6' 4) 08/18/2023 9:49 AM CDT Body Mass Index 30.19 08/18/2023 9:49 AM CDT Plan of Treatment Health Maintenance Due Date Last Done Comments DTAP/TDAP/TD VACCINES (1 - Tdap) 2011 HEPATITIS B VACCINES (1 of 3 - 19+ 3-dose series) 2011 INFLUENZA VACCINE (#1) 2023 05/07/2019 HPV VACCINES Aged Out No longer eligi ble based on patient's age to complete [place] [address] [place] [address] [facility] ONLY
== END ==
LOC: ANHLAB 12:22
PROVIDERS: PCP Family Medicine; Visit Provider Plastic Surgery
DX: R22.0 Localized swelling, mass and lump, head (principal)
CPT/HCPCS: 88305